=== PATIENT | female | born 1945 | race Caucasian/White ===

== ENCOUNTER 2023-08-23 21:47 | Emergency (ER) | payer OTHER ==
[2023-08-23] MEDS ORDERED: MORPHINE 4 MG/ML SYR ONE (22:20)
[2023-08-23] MEDS ORDERED: ONDANSETRON 4 MG/2 ML VIAL ONE (22:20)
[2023-08-23] MEDS ORDERED: CEFAZOLIN SODIUM 1 GM/VIAL ONE (22:20)
[2023-08-23] MEDS ORDERED: NA CHLORIDE 0.9% 50 ML ONE (22:20)
--- NOTE | 2023-08-23 22:27 | RAD REPORT ---
EXAM DESCRIPTION: RAD - Forearm Left - 08/23/2023 10:20 pm CLINICAL HISTORY: PAIN COMPARISON: No comparisons FINDINGS: Comminuted intra-articular and impacted fracture of the distal radius is noted. Moderate s oft tissue swelling. No dislocation is seen. Examination is limited by nonstandard anatomic positioni ng.
--- NOTE | 2023-08-23 22:39 | EDPHYS ---
Physician Documentation [facility] Name: Graciela Diamond Age: 77 yrs Sex: Female : 1945 Arrival Date: 08/23/2023 Time: 21:47 Bed 14 Private MD: ED Physician Nicho Liang HPI: 08/22 22:40 This 77 yrs old Female presents to ER via Ambulatory with complaints of Wrist Injury, kb Fall Injury. 22:40 Pt is a 77 year old female who presents for wrist pain and deformity to left wrist kb after falling from [employer]. Denies any other injuries. . Historical: - Allergies: 22:13 Darvon; cp4 - Home Meds: 22:13 Farxiga 5 mg oral tablet daily [Active]; cp4 - PMHx: 22:13 Hypertensive disorder; cp4 - Immunization history:: Adult Immunizations up to date. - Infectious Disease History:: Denies. CDIFF, C. Auris, ESBL, MRSA (w/in 1 year), VRE (w/in 1 year), TB, . - Social history:: Smoking status: Patient denies any tobacco usage or history of. ROS: 22:11 Constitutional: As per HPI kb Exam: 22:11 Constitutional: This is a well developed, well nourished patient who is awake, alert, kb and in no acute distress. Head/Face: Normocephalic, atraumatic. ENT: Moist Mucous membranes Cardiovascular: Regular rate Respiratory: Respirations even and unlabored. No increased work of breathing. Talking in full sentences Abdomen/GI: Soft, non-tender. No distention Skin: Warm, dry with normal turgor. Normal color. Neuro: Awake and alert, GCS 15, oriented to person, place, time, and situation. Moves all extremities. Normal gait. 22:11 Musculoskeletal/extremity: Extremities: grossly normal except: noted in the left wrist: abrasion, decreased ROM, deformity, pain, puncture, swelling, tenderness, ROM: limited active range of motion, limited active range of motion due to pain, Circulation is intact in all extremities. Sensation intact. Vital Signs: 22:11 BP 131 / 62; Pulse 80; Resp 18; Temp 97.9; Pulse Ox 100% ; Weight 68.04 kg; Height 5 cp4 ft. 2 in. ; Pain 10/10; 23:00 BP 142 / 79; Pulse 70; Resp 18; Pulse Ox 100% ; cp4 22:11 Body Mass Index 27.44 (68.04 kg, 157.48 cm) cp4 22:11 Pain Scale: Adult cp4 MDM: 21:55 Patient medically screened. kb 22:12 Data reviewed: vital signs, nurses notes. kb 22:39 Differential diagnosis: dislocation, open fracture, closed fracture. Consideration of kb Admission/Observation Escalation of care including admission/observation considered. Pt will be transferred for lack of orthopedic coverage at this facility. Will transfer to [place] for trauma. Counseling: I had a detailed discussion with the patient and/or guardian regarding the historical points, exam findings, and any diagnostic results supporting the discharge/admit diagnosis, radiology results, the need to transfer to another facility, [facility] does not immediately have the required specialist. 22:50 Management of patient was discussed with the following: Dr Nichole at [facility] accepts pt for transfer. 08/22 22:08 Order name: CBC with Diff; Complete Time: 23:05 kb 08/22 22:08 Order name: Basic Metabolic Panel; Complete Time: 22:50 kb 08/22 22:07 Order name: Forearm Left XRAY; Complete Time: 22:30 kb 08/22 22:07 Order name: IV Start; Complete Time: 22:12 kb 08/22 22:40 Order name: Sugar Tong Forearm Splint; Complete Time: 23:06 kb Administered Medications: 22:26 Drug: ceFAZolin IVPB 1 grams IVPB once Route: IVPB; Site: right antecubital; cp4 23:07 Follow up: Response: No adverse reaction; IV Status: Completed infusion cp4 22:26 Drug: morphine IVP or IV 4 mg IVP once over 4 mins Route: IVP; Infused Over: 4 mins; cp4 Site: right antecubital; 23:07 Follow up: Response: No adverse reaction cp4 22:26 Drug: Ondansetron IVP 4 mg IVP once; over 2 minutes Route: IVP; Site: right antecubital;cp4 23:07 Follow up: Response: No adverse reaction cp4 22:55 Drug: fentaNYL (PF) IVP 25 mcg IVP once Route: IVP; Site: right antecubital; kd3 23:38 Follow up: Response: No adverse reaction; Pain is decreased cp4 23:48 Drug: HYDROmorphone IVP 0.5 mg IVP once Route: IVP; Site: right antecubital; kd3 Disposition: 23:51 Co-signature as Attending Physician, Nicho Liang MD I reviewed the patient's care rt provided by the Advanced Practice Provider and agree with the diagnosis and treatment plan. Disposition Summary: 08/23/23 22:39 Transfer Ordered Notes: Transfer Location: [facility] kb Reason: Higher level of care kb Condition: Stable kb Problem: new kb Symptoms: are unchanged kb Accepting Physician: Dr Nichole(08/23/23 23:51) cp4 Diagnosis - Open comminuted intra-articular and impacted fracture of the distal radius kb Forms: - Medication Reconciliation Form kb - SBAR form kb Signatures: Dispatcher [employer] EDMS Luna Vargas, BERNARDO-C HEEL WASHER STRINGING MACHINE OPERATOR-Rocio Mccbae RN RN kd3 Nicho Liang MD MD rt Edith Joshi cp4 Corrections: (The following items were deleted from the chart) 22:08 22:08 Forearm Left+RAD.RAD.BRZ ordered. EDMS EDMS 22:50 22:39 DR manzo kb 23:51 22:50 Dr Nichole kb cp4
--- NOTE | 2023-08-23 22:39 | ER ---
Nurse's Notes [facility] Name: Graciela Diamond Age: 77 yrs Sex: Female : 1945 Arrival Date: 08/23/2023 Time: 21:47 Bed 14 Private MD: Diagnosis: Open comminuted intra-articular and impacted fracture of the distal radius Presentation: 08/22 22:11 Chief complaint: Patient states: left wrist injury from fall. Coronavirus screen: cp4 Client denies travel out of the [place] in the last 14 days. At this time, the client does not indicate any symptoms associated with coronavirus-19. Ebola Screen: Patient negative for fever greater than or equal to 101.5 degrees Fahrenheit, and additional compatible Ebola Virus Disease symptoms Patient denies exposure to infectious person. Patient denies travel to an Ebola-affected area in the 21 days before illness onset. No symptoms or risks identified at this time. Initial Sepsis Screen: Does the patient meet any 2 criteria? No. Patient's initial sepsis screen is negative. Does the patient have a suspected source of infection? No. Patient's initial sepsis screen is negative. Risk Assessment: Do you want to hurt yourself or someone else? Patient reports no desire to harm self or others. Onset of symptoms was August 23, 2023. 22:11 Method Of Arrival: Ambulatory 4 22:11 Acuity: JESUS 3 cp4 Triage Assessment: 22:13 General: Appears distressed, uncomfortable, Behavior is calm, cooperative, appropriate cp4 for age. Pain: Complains of pain in left arm and left wrist Pain currently is 10 out of 10 on a pain scale. Musculoskeletal: Reports pain in left arm and left wrist. Injury Description: contusion from fall. Historical: - Allergies: 22:13 Darvon; cp4 - Home Meds: 22:13 Farxiga 5 mg oral tablet daily [Active]; cp4 - PMHx: 22:13 Hypertensive disorder; cp4 - Immunization history:: Adult Immunizations up to date. - Infectious Disease History:: Denies. CDIFF, C. Auris, ESBL, MRSA (w/in 1 year), VRE (w/in 1 year), TB, . - Social history:: Smoking status: Patient denies any tobacco usage or history of. Screenin:17 [facility] ED Fall Risk Assessment (Adult) History of falling in the last 3 months, cp4 including since admission Yes- single mechanical fall (1 pt) Confusion or Disorientation No (0 pts) Intoxicated or Sedated No (0 pts) Impaired Gait No (0 pts) Mobility Assist Device Used No (0 pt) Altered Elimination No (0 pt) Score/Fall Risk Level 0 - 2 = Low Risk Oriented to surroundings, Maintained a safe environment, Assessed \T\ reinforced patient's understanding of fall precautions, Hourly rounding (assess needs \T\ fall precautionary measures) done. Abuse screen: Denies threats or abuse. Nutritional screening: No deficits noted. Tuberculosis screening: No symptoms or risk factors identified. Assessment: 22:17 Reassessment: No changes from previously documented assessment. cp4 Vital Signs: 22:11 BP 131 / 62; Pulse 80; Resp 18; Temp 97.9; Pulse Ox 100% ; Weight 68.04 kg; Height 5 cp4 ft. 2 in. ; Pain 10/10; 23:00 BP 142 / 79; Pulse 70; Resp 18; Pulse Ox 100% ; cp4 22:11 Body Mass Index 27.44 (68.04 kg, 157.48 cm) cp4 22:11 Pain Scale: Adult cp4 ED Course: 21:52 Patient arrived in ED. [email or web address] 21:55 Luna [facility] kb 21:55 Nicho Liang MD is Attending Physician. kb 22:11 Edith Joshi is Primary Nurse. cp4 22:12 CBC with Diff Sent. kd3 22:12 Basic Metabolic Panel Sent. kd3 22:12 Initial lab(s) drawn, by de, sent to lab. Inserted saline lock: 20 gauge in right kd3 antecubital area, using aseptic technique. Blood collected. 22:13 Triage completed. cp4 22:13 Arm band placed on right wrist. Patient placed in an exam room, on a stretcher. cp4 22:17 No provider procedures requiring assistance completed. cp4 22:17 Bed in low position. Call light in reach. Side rails up X2. Provided Education on: cp4 wrist fracture. 22:22 Forearm Left XRAY In Process Unspecified. EDMS 23:37 Inserted Patient transferred, IV remains in place. cp4 Administered Medications: 22:26 Drug: ceFAZolin IVPB 1 grams IVPB once Route: IVPB; Site: right antecubital; cp4 23:07 Follow up: Response: No adverse reaction; IV Status: Completed infusion cp4 22:26 Drug: morphine IVP or IV 4 mg IVP once over 4 mins Route: IVP; Infused Over: 4 mins; cp4 Site: right antecubital; 23:07 Follow up: Response: No adverse reaction cp4 22:26 Drug: Ondansetron IVP 4 mg IVP once; over 2 minutes Route: IVP; Site: right antecubital;cp4 23:07 Follow up: Response: No adverse reaction cp4 22:55 Drug: fentaNYL (PF) IVP 25 mcg IVP once Route: IVP; Site: right antecubital; kd3 23:38 Follow up: Response: No adverse reaction; Pain is decreased cp4 23:48 Drug: HYDROmorphone IVP 0.5 mg IVP once Route: IVP; Site: right antecubital; kd3 Medication: 22:17 VIS not applicable for this client. cp4 Outcome: 22:39 ER care complete, transfer ordered by MD. manzo 23:37 Transferred by ground EMS to [facility], Transfer form completed. X-rays sent cp4 w/ patient. 23:37 Condition: stable 23:37 Instructed on the need for transfer, 23:51 Patient left the ED. cp4 Signatures: Dispatcher [employer] EDMS Luna Vargas, FELA CHANG-Aaliyah Preston [email or web address] Rocio Jaeger RN RN kd3 Edith Joshi cp4
[2023-08-23 22:46] LABS: Anion Gap 12.6 mEq/L (5.0-15.0); Potassium 4.6 mEq/L (3.5-5.1)
[2023-08-23] MEDS ORDERED: FENTANYL CITR 100 MCG/2 ML ONE (22:52)
[2023-08-23 22:59] LABS: Absolute Basophils 0.1 K/uL (0-0.5); Absolute Eosinophils 0.2 K/uL (0-0.5); Absolute Lymphocytes (CBC) 1.6 K/uL (0.7-4.9); Absolute Monocytes 0.6 K/uL (0.1-1.3); Absolute Neutrophil 9.3 K/uL (1.8-8.0); Basophils % 0.7 % (0-1.3); Eosinophils % 1.4 % (0-4.4); Hemoglobin 11.3 g/dL (12.0-15.0); Lymphocytes % 13.6 % (15.3-44.8); MCH 31.5 pg (27.0-35.0); MCHC 33.2 g/dL (32.0-36.0); MCV 94.9 fL (80-100); MPV 8.9 fL (7.6-11.3); Monocytes % 5.2 % (3.3-12.3); Neutrophils % 79.1 % (41.7-73.7); Platelets 273 thou/uL (152-406); RBC Red Blood Cell Count 3.59 M/uL (3.86-4.86); Red Cell Distribution Width 12.5 % (12.1-15.2)
[2023-08-23] MEDS ORDERED: HYDROMORPHONE HCL 0.5 MG/0.5 ML INJ ONE (23:47)
[2023-08-24 00:22] VITALS: BP 142/79; TEMP 97.9; O2SAT 100
== END 2023-08-23 23:51 | disposition short-term general hospital (02) ==
LOC: ER 21:47
PROC: 2W3DX1Z Immobilization of Left Lower Arm using Splint (ICD-10-PCS; principal; 2023-08-23)
DX: S52.572B Other intraarticular fracture of lower end of left radius, initial encounter for open fracture type I or II (principal)
CPT/HCPCS: 96365; 85025; 80048; 36415; 73090; 96375; 99285; 29125; J3010; J1170; J2405; J0690